=== PATIENT | female | born 1955 | race Hispanic/Latino ===

== ENCOUNTER → 2022-02-25 | Outpatient (CLI) | payer MEDICARE | END | disposition home or self-care (01) | LOC: RAH 12:37 | PROVIDERS: ATTEND Physical Medicine & Rehabilitation | DX: M47.22 Other spondylosis with radiculopathy, cervical region (principal); M48.02 Spinal stenosis, cervical region; M25.78 Osteophyte, vertebrae; M48.07 Spinal stenosis, lumbosacral region | CPT/HCPCS: 72050; 72081; 72110 ==

== ENCOUNTER → 2022-08-26 | Outpatient (CLI) | payer MEDICARE | END | disposition home or self-care (01) | LOC: RAH 08:44 | PROVIDERS: ATTEND Physical Medicine & Rehabilitation | DX: M51.16 Intervertebral disc disorders with radiculopathy, lumbar region (principal); M48.061 Spinal stenosis, lumbar region without neurogenic claudication | CPT/HCPCS: 72148 ==

== ENCOUNTER → 2023-02-04 | Outpatient (CLI) | payer MEDICARE | END | disposition home or self-care (01) | LOC: RAH 13:02 | PROVIDERS: ATTEND Physical Medicine & Rehabilitation | DX: S92.352A Displaced fracture of fifth metatarsal bone, left foot, initial encounter for closed fracture (principal); M19.072 Primary osteoarthritis, left ankle and foot; M79.672 Pain in left foot; X58.XXXA Exposure to other specified factors, initial encounter; Y93.89 Activity, other specified; Y92.89 Other specified places as the place of occurrence of the external cause; Y99.8 Other external cause status | CPT/HCPCS: 73630 ==

== ENCOUNTER → 2023-03-05 | Outpatient (CLI) | payer MEDICARE | END | disposition home or self-care (01) | LOC: RAH 09:18 | PROVIDERS: ATTEND Physical Medicine & Rehabilitation | DX: M19.072 Primary osteoarthritis, left ankle and foot (principal); M21.6X2 Other acquired deformities of left foot; M77.32 Calcaneal spur, left foot; M79.672 Pain in left foot | CPT/HCPCS: 73630 ==

== ENCOUNTER → 2025-03-28 | Outpatient (CLI) | payer MEDICARE ==
--- NOTE | 2025-03-28 18:25 | HMCIMG ---
EXAM: MR Brain Without Intravenous Contrast. CLINICAL HISTORY: 69-year-old female with chronic hemifacial spasm. TECHNIQUE: Magnetic resonance images of the brain without intravenous contrast in multiple planes. CONTRAST: NONE; COMPARISON: None provided. FINDINGS: BRAIN: Moderate cerebral and cerebellar atrophy. Moderate chronic ischemic changes. No restricted diffusion to indicate acute infarction. No intracranial mass or hemorrhage. No midline shift or extra-axial fluid collection. No cerebellar tonsillar ectopia. The central arterial and venous flow voids are patent. VENTRICLES: No hydrocephalus. ORBITS: The orbits are normal. SINUSES AND MASTOIDS: The sinuses and mastoid air cells are clear. BONES: No acute fracture or focal osseous lesion. IMPRESSION: 1. No acute findings. 2. Moderate cerebral and cerebellar atrophy. 3. Moderate chronic ischemic changes. /[place]
== END | disposition home or self-care (01) ==
LOC: RAH 11:05
PROVIDERS: ATTEND Physical Medicine & Rehabilitation
DX: I67.82 Cerebral ischemia (principal); G51.31 Clonic hemifacial spasm, right; R51.9 Headache, unspecified; R25.1 Tremor, unspecified
CPT/HCPCS: 70551